=== PATIENT | male | born 1945 | race Caucasian/White ===

== ENCOUNTER → 2018-01-09 | Outpatient (CLI) | payer OTHER ==
[~2018-01-09] MED LIST: ADULT LOW DOSE81 MG PO; AMLODIPINE BESYL5 MG PO; APAP500 PO; ARICEPT 5 MG TAB5 MG PO; ATIVAN0.5 MG PO; CELEXA40 MG PO; FAMOTIDINE 20 M20 MG PO; LISINOPRIL10 MG PO; MAPAP500 M1 PO; MELOXICAM7.5 MG PO; NAMENDA 10 MG T10 MG PO; NAMENDA 5 MG TAB5 M1 PO; NORCO 5-325 TA1 EACH PO; PERIDEX15 ML SWISH&SPIT; POTASSIUM CHLO10 MEQ PO; PRENA1 CHEW TABL1 MG PO; SANCTURA XR60 M1 PO; SIMVASTATIN20 MG PO; ZANTAC 150MG T150 M1 PO
== END ==
LOC: CAT 06:20
DX: M47.897 Other spondylosis, lumbosacral region (principal); R53.1 Weakness

== ENCOUNTER 2019-07-25 11:50 | Emergency (ER) | payer OTHER ==
[~2019-07-25] VITALS: Ht 175.3 cm; Wt 72.6 kg
[2019-07-25] MEDS ORDERED: BUSPIRONE HCL15 MG PO (12:46)
[2019-07-25] MEDS ORDERED: FLOMAX0.4 MG PO (12:47)
[2019-07-25] MEDS ORDERED: AMOXICILLIN 50500 M1 PO (12:50)
[2019-07-25 12:51] LABS: ABSOLUTE NEUTROPHILS 8.8 thou/uL (1.4-8.2); BASOPHILS 0.6 % (0.0-2.0); EOSINOPHILS 0.4 % (0.0-3.0); HEMATOCRIT 30.2 % (42.0-52.0); LYMPHOCYTES 5.6 % (24.0-44.0); MCH 28.5 pg (26.0-34.0); MCHC 33.3 g/dL (28.0-37.0); MCV 85.6 fL (80.0-100.0); MONOCYTES 7.8 % (1.0-8.0); PLATELET COUNT 304 thou/uL (150-400); POLYS 85.6 % (36.0-66.0); RBC 3.52 mil/uL (4.50-6.00); RDW 14.6 % (10.5-14.5); WBC 10.2 thou/uL (4.0-11.0)
[2019-07-25 12:59] LABS: CALCIUM 9.1 mg/dL (8.5-10.1); CREATININE 9.9 mg/dL (0.7-1.3); POTASSIUM 5.6 mmol/L (3.5-5.1)
[2019-07-25 13:05] LABS: ALBUMIN 2.9 g/dL (3.4-5.0); TOTAL BILIRUBIN 0.3 mg/dL (<0.1-1.0); TOTAL PROTEIN 7.7 g/dL (6.4-8.2)
[2019-07-25 17:12] VITALS: BP 138/72
== END 2019-07-25 17:13 ==
LOC: ER 11:50
PROVIDERS: Emergency Medicine
DX: N19 Unspecified kidney failure (principal); R33.9 Retention of urine, unspecified; R19.7 Diarrhea, unspecified; Z90.79 Acquired absence of other genital organ(s); I10 Essential (primary) hypertension; K21.9 Gastro-esophageal reflux disease without esophagitis; Z86.14 Personal history of Methicillin resistant Staphylococcus aureus infection; Z96.651 Presence of right artificial knee joint; Z85.53 Personal history of malignant neoplasm of renal pelvis

== ENCOUNTER 2019-10-20 10:55 | Inpatient (IN) | payer OTHER ==
[~2019-10-20] VITALS: Ht 175.3 cm; Wt 74.4 kg
[~2019-10-20 10:55] MED LIST changes: +AMOXICILLIN 50500 M1 PO; +ARICEPT10 M1 PO; +BUSPIRONE HCL15 MG PO; +FLOMAX0.4 MG PO; +MINERIN CREME113 GM TOP; +TESSALON PERLE100 MG PO
[2019-10-20 11:43] LABS: HEMOGLOBIN 12.5 gm/dL (14.0-18.0)
[2019-10-20 11:50] LABS: CALCIUM 8.9 mg/dL (8.5-10.1); CREATININE 1.9 mg/dL (0.7-1.3); POTASSIUM 3.8 mmol/L (3.5-5.1)
[2019-10-20 11:57] LABS: ALBUMIN 3.9 g/dL (3.4-5.0); TOTAL BILIRUBIN 0.3 mg/dL (<0.1-1.0); TOTAL PROTEIN 7.9 g/dL (6.4-8.2)
[2019-10-20 12:43] VITALS: BP 137/89
--- NOTE | 2019-10-20 16:22 | H ---
[facility] [place] [address] HISTORY AND PHYSICAL Name: KRYSTAL JOHN Room #: 150-3 [facility].#: [id number] Admission: 10/20/19 Attend Phys: Jonathan Abdi MD Discharge: Date of : 45 Report #: [id number] THIS REPORT FOR: //name// CC: ACE Abdi DATE OF SERVICE: 10/20/2019 PREOPERATIVE DIAGNOSIS: Incisional hernia. HISTORY OF PRESENT ILLNESS: The patient is a 74-year-old who had a nephrectomy recently. The patient recently noticed a hernia located at the surgery site. The hernia is getting larger. He does complain of some discomfort here. The patient had a CT performed, which showed a large hernia with a couple loops of small bowel and large bowel without evidence of obstruction. The patient's family including guardian wanted to have this repaired. I agree due to the size he is at risk to have this become problematic. PAST MEDICAL HISTORY: Has a history of high blood pressure, GERD, sarcoidosis, history of cerebral palsy with left hemiparesis. PAST SURGICAL HISTORY: The patient had history hip replacement, which had an infection result of that. The patient had a right inguinal hernia repair by myself. FAMILY HISTORY: The patient has a family history of Alzheimer's dementia, hypertension. Sister with multiple sclerosis. The patient lives in a care home, has been there for a long time. His niece is a guardian. SOCIAL HISTORY: The patient does not smoke or drink. REVIEW OF SYSTEMS: There is no chest pain, shortness of breath. PHYSICAL EXAMINATION: GENERAL: The patient is a well-nourished, friendly. HEENT: Pupils react to light. Extraocular muscles are intact. NECK: Soft and supple, no masses. LUNGS: Clear. HEART: Regular rate and rhythm. No murmur or gallop. ABDOMEN: There is a scar present with a large hernia. This incision that was made for his nephrectomy. EXTREMITIES: The patient has left hemiparesis and contraction in the left upper extremity. IMPRESSION: The patient with an incisional hernia after a nephrectomy. The [facility] [address] [place] [address] HISTORY AND PHYSICAL Name: JOHNKRYSTAL L Room #: 150-[address] [place] [address].#: [id number] Admission: 10/20/19 Attend Phys: Jonathan Abdi MD Discharge: Date of : 45 Report #: [id number] patient is recommended to undergo repair of the hernia and his guardian wants to proceed. Use of a mesh was discussed. Laparoscopic approach was discussed. Risk of infection, bleeding, mesh infection, hernia recurrence was discussed. Patient and the family knows the risks and wishes to proceed. <ELECTRONICALLY SIGNED> By: Jonathan Abdi MD 10/20/19 1622 [id number] [id number] Jonathan Abdi MD /nt
[2019-10-20 17:30] VITALS: BP 141/60
[2019-10-20 18:30] VITALS: BP 140/62
--- NOTE | 2019-10-20 19:37 | NUR ---
PT transferred from [facility]. Incision sites c/d/i. Hx of cerebral palsy. Nice is also pt's guardian. IVF infusing. Internal medicine consulted. Pt is observation status. Report given to marko colbert.
[2019-10-20 20:10] VITALS: BP 160/86
[2019-10-21 03:30] VITALS: BP 123/75
--- NOTE | 2019-10-21 04:00 | NUR ---
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 PAIN HAS MORE PAIN WHEN HE HAS TO LAY FLAT OR WHILE REPOSITIONING. HE IS PLEASANT. WAS CALM THRO NOC AND AGREED FOR A R WRIST IV TO BE STARTED WITH NO ISSUES.PREVIOUS RFA INFILTRATED.USES URINAL WITH ADEQUATE OUTPUT IN THE NOC.ENCOURAGED TO DRINK.PAIN CONTROLLED BY SCHEDULED TYLENOL AND PRN NORCO.VSS. ON CLEARS.FALL PREC IN PLACE.
[2019-10-21 06:19] LABS: HEMATOCRIT 33.4 % (42.0-52.0); HEMOGLOBIN 10.9 gm/dL (14.0-18.0); MCH 28.6 pg (26.0-34.0); MCHC 32.6 g/dL (28.0-37.0); MCV 87.8 fL (80.0-100.0); RBC 3.8 mil/uL (4.50-6.00); RDW 14.6 % (10.5-14.5); WBC 7.7 thou/uL (4.0-11.0)
[2019-10-21 06:27] LABS: CALCIUM 8.1 mg/dL (8.5-10.1); CREATININE 1.8 mg/dL (0.7-1.3)
[2019-10-21 07:29] VITALS: BP 133/99
[2019-10-21 16:55] VITALS: BP 125/71
--- NOTE | 2019-10-21 17:12 | NUR ---
PT ASSESSED AT START OF SHIFT. PT W/ MILD COGNITIVE DEFICIT BUT ALERT AND COOPERATIVE W/ CARES. POST OP LAP CHOLEY W/ LAP SITES BANDAIDS D&I. TYLENOL GIVEN FOR PAIN. BS HYPOACTIVE SO PT TAKING FEW BITES OF FOOD BUT DRINKING CLEAR LIQUIDS. UP W/ THERAPY AND SAT IN THE CHAIR MOST OF SHIFT. NIECE HERE TO VISIT TWICE.
[2019-10-21 19:15] VITALS: BP 145/77
--- NOTE | 2019-10-22 02:19 | NUR ---
PT WAS OBSERVED SITTING UP ON THE SIDE OF HIS BED EATING AT START OF SHIFT.PT C/O GEN ABD PAIN,SILVIANO TYLENOL GIVEN.BANDAID IN PLACE ON HIS ABD SITES POST LAP HERNIA REPAIR.PT DRINKS WITH MED CUPS.IVF INFUSING ORDERED.URINAL AT BED SIDE.PT RESTING ON HIS BED AT THIS TIME.PT REF TO WEAR HIS YELLOW SOCK WHILE IN BE BUT AGREED TO PUT IT ON WHEN HE IS OUT OF BED.FALL PRECAUTIONS IN PLACE,CALL LIGHT WITHIN REACH.
[2019-10-22 03:30] VITALS: BP 134/85
[2019-10-22 08:05] VITALS: BP 132/76
--- NOTE | 2019-10-22 14:17 | O ---
[facility] [place] [address] OPERATIVE REPORT Name: KRYSTAL JOHN Room #: 434-P ADM IN M.R.#: [id number] Admission: 10/21/19 Attend Phys: Jonathan Abdi MD Discharge: Date of : 45 Report #: [id number] THIS REPORT FOR: cc: Dale Maloney MD, Mark A. MD Chu,Jonathan Bassett MD ~ THIS REPORT FOR: //name// CC: Dale Abdi DATE OF SERVICE: 10/21/2019 PREOPERATIVE DIAGNOSIS: Large left incisional hernia with small bowel and colon CAT scan, partially irreducible. POSTOPERATIVE DIAGNOSIS: Large incisional hernia with incarcerated and scarred omentum with adjacent transverse colon defect measured 6 x 10 cm oval shape transversely oriented. PROCEDURES PERFORMED: Repair of incarcerated incisional hernia with lysis of adhesion and placement of the Ventralight ST mesh with Echo technology. SURGEON: Jonathan Abdi MD ANESTHESIA: General anesthesia. COMPLICATIONS: None. ESTIMATED BLOOD LOSS: 5 mL. PROCEDURE NOTE: With the patient under general anesthesia, Hernandez catheter was placed, IV antibiotic was administered. Abdomen was prepped and draped in sterile fashion. Ioban was used. A 2 cm cutdown incision was made on the right side in the right upper quadrant. 0.25% Marcaine was used to anesthetize the skin and subcutaneous tissue. After incising through the skin, the anterior fascia was identified. The anterior fascia was transversely incised. The rectus muscle was spread. The posterior fascia was identified. This was then grasped with hemostats and then opened under visualization. Free peritoneal cavity was identified in this area. As I went through the fascial layers, stay sutures were placed on the fascia layers with 0 Vicryl suture. An 11 mm Origin balloon trocar was placed under visualization into the peritoneal cavity. The balloon was inflated. The sponge part of the trocar was fastened down, keeping the seal. CO2 was administered. Then under visualization, a 5 mm trocar was placed in the right lateral, slightly to the lower part of the abdomen and then [address] [address] OPERATIVE REPORT Name: KRYSTAL JOHN Room #: 434-P [facility] IN M.R.#: [id number] Admission: 10/21/19 Attend Phys: Jonathan Abdi MD Discharge: Date of : 45 Report #: [id number] a second 5 mm trocar was placed in the right upper quadrant lateral and slightly inferior to the balloon trocar and cut down site. These were felt to be the optimum position for the two 5 mm trocar. The patient was placed in a slight reverse Trendelenburg position, left side was tilted up. The hernia prior to the surgery was partially reducible, but there was still a thickened nodular area along the medial aspect of the hernia. Upon laparoscopic evaluation, there is a segment of omentum, which is incarcerated and stuck, adhesed to the hernia. There was also omentum stuck to the edge of the fascia defect. The fascia defect is oval shaped and transversely oriented. His incision was up and down. I suspect that after making the vertical incision, the fascia was opened transversely. The inferior edge of the fascia is well-defined, but the superior aspect is ill-defined. Harmonic scalpel was used to dissect the omental fat that was inside the hernia sac. Majority of this was removed. There was still some remaining fat that was thin and plastered along the sac that was too far down to reach. When I was doing this, the omentum was free from the edge of the fascia, which was well-defined inferiorly. I can see the transverse colon coming towards the fascia defect. A careful dissection was carried out mostly bluntly, freeing the omentum from the fascia edges. Once this was freed, the colon dropped down all the way. The colon was examined after the omentum was released from the sac. The colon was intact and partially filled with air. Hernia sac was measured at 10 cm transverse and then approximately 6 cm craniocaudad direction, but it did not have a definitive rim superiorly. With a 10 cm defect, a 6 x [address] and Echo technology was used. Mesh was rolled up and then placed through the cutdown site. This was placed directly under visualization after removing the 11 mm balloon trocar. The trocar was then replaced. CO2 was then placed. The mesh was oriented with a scaffolding Echo facing the anterior facing the abdominal cavity and the tubing where the Echo was brought out through the hernia defect and the balloon was inflated, tenting the mesh up. The mesh was positioned so the edge of the mesh was located about 5 cm from the fascia edges. At this point, the mesh was tacked with SorbaFix. A SorbaFix 30 was used and then a 15 SorbaFix was also used, although not all of it. The mesh covered the hernia defect well. The Echo balloon was deflated and then removed through the 11 mm trocar. Transfascial suture was then placed. CV-2 Claiborne-Sebas suture was placed at the 6 o'clock position and then at the 3-4 o'clock position and then up at 1 o'clock and then at the 11 o'clock position and then the 3-4 o'clock position. 12 o'clock being the mid part of the mesh pointing towards the head. Defect was well covered. No bleeding was identified. After the mesh was placed, the CO2 was evacuated. Trocars were removed. At the cutdown side, the fascia was closed with a umamxf-kh-ktyjt 0 PDS x 2 and the posterior layer and then xwstdd-vv-cxvyj 0 PDS in the anterior fascia. The skin was irrigated. The skin was closed with 5-0 PDS at the trocar site. At the transfascial suture site, the skin was brought together and glue was applied. Band-Aid was applied. The patient tolerated the procedure well and was taken to recovery room. We will leave the Hernandez until we hit the recovery room. The patient got to recovery [address] [address] OPERATIVE REPORT Name: KRYSTAL JOHN Room #: 434-P [facility] IN .R.#: [id number] Admission: 10/21/19 Attend Phys: Jonathan Abdi MD Discharge: Date of : 45 Report #: [id number] room, did complains quite a bit of Hernandez catheter. We decided to go ahead and remove it . <ELECTRONICALLY SIGNED> By: Jonathan Abdi MD 10/22/19 1417 1402 1455 Jonathan Abdi MD /nt
--- NOTE | 2019-10-22 15:25 | NUR ---
PT ADMITTED RELATED TO LEFT SIDED INCISIONAL HERNIA REPAIR. CM REVIEWED CHART AND SPOKE WITH CARE TEAM. CM CALLED AND SPOKE WITH PT'S NIECE/GUARDIAN. SHE INDICATED THAT PT RESIDES AT [facility] CALLED [facility] [place]. PT HAS 08/04 SUPERVISION AND ASSISTANCE IN THE COMMUNITY. 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 PT HAD USED A QUAD CANE. PT HAD HOME HEALTH IN THE PAST AND GUARDIAN INDICATED THAT THEY WOULD BE RECEPTIVE TO THEM UPON DC. CARE TEAM INDICATED THAT THEY ANTICPATE THAT PT WILL BE MEDICALLY STABLE TO DC HOME TOMORROW. CM NOTIFIED CAREGIVER FAY OF LIKELY RETURN TOMORROW. NIECE WILL PROVIDE TRANSPORT HOME. REFERRAL SENT TO [facility] FOR REVIEW. CM TO FOLLOW INDICATED WITH DC PLANNING.
--- NOTE | 2019-10-22 15:35 | NUR ---
DISCHARGE PLANNING. ANTICIPATED DISCHARGE PLANNED FOR TOMORROW. HOME HEALTH ORDERED. PATIENT REFERRAL FAXED TO [facility]. CALL PLACED TO [facility] TO NOTIFY. SPOKE WITH ZULLY STEPHENS. KAT TO REVIEW AND NOTIFY CM. FOLLOWING.
[2019-10-22 19:30] VITALS: BP 143/86
--- NOTE | 2019-10-22 20:45 | H ---
[facility] [place] [address] HISTORY AND PHYSICAL Name: KRYSTAL JOHN Room #: 434-P ADM IN M.R.#: [id number] Admission: 10/21/19 Attend Phys: Jonathan Abdi MD Discharge: Date of : 45 Report #: [id number] THIS REPORT FOR: //name// CC: Elliott Abdi MD CHIEF COMPLAINT: Abdominal pain. HISTORY OF PRESENT ILLNESS: The patient is a 74-year-old white male, well known to me over the years, who in the last year had a nephrectomy in treatment of renal cancer. He developed a postop hernia and saw Dr. Jonathan Abdi because it was causing continued episodes of pain and he underwent a surgical repair of this incisional hernia today, successfully. I am seeing the patient for medical management. PAST MEDICAL HISTORY: Includes hypertension, osteoarthritis at multiple sites, cerebral palsy with a left hemiparesis chronically. He has had a right total hip replacement in the remote past. There was an infection associated with it, but it resolved without further surgical or medical intervention after an antibiotic course. He also has a history of sarcoidosis of pulmonary variety. He responded to prolonged course of steroids in the remote past and has not had recurrence for at least 5 years. He did have a MRSA skin infection a number of years ago just prior to my taking him on as a patient and has not had any recurrences in at least the last 15 years. He has had a right inguinal hernia repair by Dr. Abdi in the past. He also has some gastroesophageal reflux disease chronically and some dementia. He has had nephrolithiasis in his remaining kidney during the postoperative period after his nephrectomy. It was removed and he has had no further recurrences. Please also note the patient has been diagnosed with Alzheimer's dementia. He also has benign prostate hypertrophy and he has some chronic anxiety. CURRENT MEDICATIONS: Aricept 10 mg by mouth daily, tamsulosin 0.4 mg by mouth nightly, acetaminophen 3 times daily, BuSpar 15 mg 3 times daily, memantine 10 mg by mouth twice daily, Tessalon Perles 3 times daily p.r.n. cough, chlorhexidine mouthwash after meals and Minerin cream for dry extremities b.i.d. ALLERGIES: He has no known drug allergies. FAMILY HISTORY: His mother of complications of Alzheimer's dementia. She also had hypertension and osteoarthritis. His sister of multiple sclerosis. SOCIAL HISTORY: The patient lives in a skilled nursing. His guardian is his niece, Tila Calloway. He has no vices and has never smoked or drank or used recreational drugs. His favorite hobby is bowling and he loves country music. [facility] [address] [place] [address] HISTORY AND PHYSICAL Name: KRYSTAL JOHN Room #: 434-P [facility] IN M.R.#: [id number] Admission: 10/21/19 Attend Phys: Jonathan Abdi MD Discharge: Date of : 45 Report #: [id number] REVIEW OF SYSTEMS: He reports no other significant problems recently, although it is well established with him in the past that he has difficulty expressing pain and it often is revealed in him having the misbehaviours such as inappropriate anger or altered mental status. PHYSICAL EXAMINATION: GENERAL: The patient is a pleasant, slightly sleepy older white male, in no apparent distress. He denies pain at the time of my exam, sort of. HEENT: Normocephalic, atraumatic. Extraocular muscles are intact. Oropharynx is moist and pink. Pupils are equally round and reactive to light. No facial weakness. His hearing is mildly diminished bilaterally. NECK: Without adenopathy or thyromegaly or mass. LUNGS: Clear bilaterally. CARDIOVASCULAR: Reveals a regular rhythm. ABDOMEN: Soft. Surgical wounds appear fine. EXTREMITIES: There are contractures in the left upper and lower extremities. He does use a special shoe with a lift due to limb length discrepancy in the left lower extremity, chronically. He does have foot drop on the left side. He has no spinal wounds. His right lower extremity is clearly much stronger than his left and he uses a quad cane for walking. NEUROLOGIC: At baseline with a slightly confused mental status as compared to normal, but is consistent with his postoperative status. Cranial nerves 2-12 are intact. Cranial cerebellar was not assessed today. He does not have a Babinski sign on the right. The patient has good technology project manager on the right side and more of a technology project manager on the left. The right lower extremity has good range of motion and the right total hip replacement scar is well healed. ASSESSMENT AND PLAN: 1. Status post incisional hernia scar after nephrectomy -- appreciate Dr. Abdi's excellent work with this gentleman and will be happy to follow with you in postoperative course. 2. Hypertension. We will monitor and treat with a goal of keeping his systolic blood pressure in the range of 140 or below. 3. Gastroesophageal reflux disease. We will monitor and add treatment if needed. 4. Osteoarthritis, multiple sites. Again, we will add treatment as needed, but try to avoid excessive use of nonsteroidal anti-inflammatories because of the next problem. 5. Chronic kidney disease, stage 3 -- the patient has a baseline creatinine that varies between 1.5 and 1.9 usually. We will continue current medication regimen and follow up with the patient daily [address] [address] HISTORY AND PHYSICAL Name: KRYSTAL JOHN Room #: 434-P ADM IN .R.#: [id number] Admission: 10/21/19 Attend Phys: Jonathan Abdi MD Discharge: Date of : 45 Report #: [id number] until discharge and see him in followup after Dr. Abdi releases him from his outpatient care. <ELECTRONICALLY SIGNED> By: Dale Maloney MD 10/22/192044 53 21 Dale Maloney MD /nt
[2019-10-23 03:00] VITALS: BP 137/72
--- NOTE | 2019-10-23 04:51 | NUR ---
PT WAS IN BED AT START OF SHIFT.PT'S NIECE AND KIDS IN ROOM VISITING.MEDS ADMINISTERED ORDERED.PT SPILLED URINE FORM HIS URINAL ON TE BED,PT WAS CLEANED UP AND BED CHANGED.PT C/O PAIN ON HIS L SIDE,MANAGED WITH MED.DR TADEO HERE TO VISIT WITH PT,NEW ORDERS NOTED AND CARRIED OUT.PT RESTING ON HIS BED AT THIS TIME.FALL PRECAUTIONS IN PLACE,CALL LIGHT WITHIN REACH.
[2019-10-23 07:06] VITALS: BP 112/76
[2019-10-23 07:17] VITALS: BP 129/65
--- NOTE | 2019-10-23 11:00 | NUR ---
PT NOTE FROM 10/22/19. PT CARE ASSUMED AT 0700. A&Ox3. PT WAS UP TO THE RECLINER WITH DIFFICULT TRANSFER X 2. IV IS PATENT WITH NO REDNESS OR EDEMA. PT REFUSED MOUTHWASH. NO POST OP BM YET. VITALS STABLE. AWAITING CONSULT FOR REHABB ON 5N. FALL PROTOCOL IN [facility]. CALL LIGHT IN PLACE.
--- NOTE | 2019-10-23 11:08 | NUR ---
PT CARE ASSUMED AT 0700. A&Ox4. PT PULLED IV OUT, CLEARED WITH DR. TADEO THAT IT IS OK TO NOT PUT A NEW ONE IN. PROTONIX IV SWITCHED TO PO. PT IS UP TO RECLINER FOR AM. PT WAS CONSULTED FOR REHAB. PT ON CASE. FALL PROTOCOL IN PLACE. CALL LIGHT IN REACH. LUNA NEEDS TO BE CALLED AND UPDATED IF CHANGES. SHE IS THE DPOA AND CAN BE REACHED ON HER CELL PHONE. PT IS UP WITH STAND BY ASSIST AND A FOUR POINT CANE.
--- NOTE | 2019-10-23 12:06 | NUR ---
PATIENT SEEN THIS DATE BY KOLTON HARDY NP WITH DR. ARMSTRONG. PATIENT HAS WILLING CAREGIVERS AND WITH THEIR ASSISTANCE WILL BE ABLE TO D/C TO HOME WITH HOME HEALTH. SOCAIL WORKER INFORMED.
[2019-10-23 14:21] VITALS: BP 129/65
[2019-10-23 15:22] VITALS: BP 118/66
--- NOTE | 2019-10-23 17:15 | NUR ---
NIECE INDICATED SHE WASN'T CONFORTABLE WITH PT GOING BACK TO HIS SKILLED NURSING WITH HH SERVICES TODAY. SHE WAS WANTING PT TO GO TO 5N. 5N ASSESSED AND INDICATED THAT THEY WON'T HAVE BEDS OVER WEEKEND. REFERRAL SENT TO [facility] FOR REVIEW. CM TO FOLLOW INDICATED WITH DC PLANNING.
[2019-10-23 21:10] VITALS: BP 141/70
--- NOTE | 2019-10-24 03:16 | NUR ---
PT WAS IN A GOOD MOOD AT THE START OF SHIFT.PT DENIED PAIN.NO BM YET.PT'S NIECE CALLED TO CHECK ON PT,SHE WAS UPDATED ON HIS CONDITION.PT'S LAP SITES COVERED WITH BANDAIDS.URINAL AT BEDSIDE.PT RESTING ON HIS BED AT THIS TIME.FALL PRECAUTIONS IN PLACE,CALL LIGHT WITHIN REACH.
[2019-10-24 05:57] VITALS: BP 140/61
[2019-10-24 07:17] VITALS: BP 127/73
--- NOTE | 2019-10-24 11:38 | NUR ---
PT CARE ASSUMED AT 0700. A&Ox4 WITH CEREBRAL PALSY. IV PROTONIX CHANGED TO PO PER MD ORDER. PT SITTING AT THE SIDE OF THE BED AND WALKED TO THE DOOR WITH PT. UPDATE GIVEN TO THE NIECE. PT RESTING. NO IV ACCESS WITH DR. TADEO SIGNING OFF ON THIS. FALL PROTOCOL IN PLACE. CALL LIGHT WITHIN REACH.
[2019-10-24 16:02] VITALS: BP 127/70
[2019-10-24 19:25] VITALS: BP 120/69
--- NOTE | 2019-10-25 03:30 | NUR ---
ASSUMED CAR OF PT AT APPROX 1900.PT'S NIECE WAS CALLED AND UPDATED ON PT'S CONDITION PER HER REQUEST.NO BM NOTED SO FAR THIS SHIFT.URINAL AT BEDSIDE.PO FLIUIDS ENCOURAGED.FALL PRECAUTIONS IN PLACE,CALL LIGHT WITHIN REACH.
[2019-10-25 04:10] VITALS: BP 133/62
[2019-10-25 06:06] LABS: HEMATOCRIT 36.5 % (42.0-52.0); HEMOGLOBIN 11.7 gm/dL (14.0-18.0); MCH 28.4 pg (26.0-34.0); MCV 88.8 fL (80.0-100.0); RBC 4.11 mil/uL (4.50-6.00); RDW 14.8 % (10.5-14.5); WBC 4.6 thou/uL (4.0-11.0)
[2019-10-25 06:28] LABS: CALCIUM 8.9 mg/dL (8.5-10.1); CREATININE 1.4 mg/dL (0.7-1.3); POTASSIUM 4.6 mmol/L (3.5-5.1)
[2019-10-25 09:02] VITALS: BP 135/79
--- NOTE | 2019-10-25 11:33 | NUR ---
ASSUMED CARE OF THE PT AT 0700. PT STERI STRIPS INTACT AND DRY. Q2 TURNS. FALL PRECAUTIONS IN PLACE, PER ROUNDING. APPLIED CREAM TO PTS ABDOMEN AND ELBOWS. NO BM SINCE SX. SPOKE WITH NIECE, WILL LET THE DOCTOR KNOW ABOUT BM. NO C/O PAIN. BED IN LOWEST POSITION AND CALL LIGHT IS IWTHIN REACH. WILL CONTINUE TO MONITOR THE PT.
[2019-10-25 18:41] VITALS: BP 162/80
[2019-10-25 19:03] VITALS: BP 130/48
--- NOTE | 2019-10-26 03:21 | NUR ---
VSS-AFEBRILE. LUNGS CLEAR-ROOM AIR. REMAINED ALERT AND ORIENTED THROUGH SHIFT. OOB TO BSC WITH GAIT BELT AND ASSIST X 2, EARLY IN SHIFT. SMALL, WATERY, BROWN STOOL. BS HYPERACTIVE, AND PASSING FLATUS. INCONTINENT X 2 OVERNIGHT DUE TO MISSING THE URINAL. MAEGAN CARE AND FULL BED CHANGE. TURNED EVERY TWO HOURS, AND APPLIED BARRIER CREAM NEEDED. FALL PRECAUTIONS IN PLACE, CALLS APPROPRIATELY FOR ANY NEEDED ASSISTANCE.
[2019-10-26 05:13] VITALS: BP 128/68
[2019-10-26 07:05] VITALS: BP 130/71
--- NOTE | 2019-10-26 11:40 | NUR ---
PT CARE ASSUMED AT 0700. A&Ox4. NO IV ACCESS, DR. TADEO HAS SIGNED OFF ON THIS. AWAITING AUTHORIZATION FROM INSURANCE FOR PLACEMENT WITH [facility]. PT REFUSED TO GET UP IN THE RECLINER. WILL CONTINUE TO TRY AND GET HIM UP. PT BOTTOM IS RED WITH NO BREAKAGE OF THE SKIN. PT HAS TAKEN ALL HIS MEDICATION WITHOUT ANY ISSUES. PT HAS HAD A BOWEL MOVEMENT AND MIRALAX WAS HELD. FALL PROTOCOL IN PLACE. CALL LIGHT IN REACH.
[2019-10-26] MEDS ORDERED: PERCOCET 10-321 EACH PO (15:11)
--- NOTE | 2019-10-26 16:05 | NUR ---
UPDATED CLINICAL PT AND OT NOTES SENT TO [facility] FOR REVIEW FOR POSSIBLE ADMISSION. CM TO FOLLOW INDICATED WITH DC PLANNING. PT'S NIECE UPDATED.
[2019-10-26 16:26] VITALS: BP 146/76
--- NOTE | 2019-10-26 16:54 | NUR ---
FAXED CLINICAL UPDATE TO [facility] RECEIVED CONFIRMATION AND SPOKE WITH BRANDYN IN ADM SHE RECEIVED UPDATE. DP TO FOLLOW.
[2019-10-26 19:59] VITALS: BP 133/57
--- NOTE | 2019-10-26 23:13 | NUR ---
PT SITTING UP IN CHAIR WITH ALARM ON. PT A0X4 BUT REMAINS FORGETFUL. PT STATED HIS NEICES IN THE HOSPITAL WITH KATINA KISER, PT DID CALL NIECE. NIECE WANTED TO KNOW IF PT WOULD BE GOING TO REHAB AT [facility] OR [facility] THIS WEEK, WILL PACE ON TO DAY SHIFT. PT DENIES PAIN. ABD BANDAIDS INTACT. PT COMPLIANT WITH MEDS. PT TWO PERSON TRANSFER WITH BELT AND CANE TO BED, ALARM ON. SCDS ON.
[2019-10-27 03:10] VITALS: BP 135/80
[2019-10-27 07:30] VITALS: BP 114/75
--- NOTE | 2019-10-27 11:00 | NUR ---
ASSUMED CARE AT 0700, SHIFT ASSESSMENT DONE, MEDS GIVEN, VSS. REPORTED PAIN, PRN PAIN MEDS GIVEN. SITTING UP IN THE CHAIR THIS AM. 9 LAP SITES WITH BADNAIDS ON THEM, CLEAN, DRY, INTACT. HAD A BM THIS AM. REMAINS ON ROOM AIR. WILL CONITNUE TO ASSESS AND ASSIST WITH ADLs NEEDED.
--- NOTE | 2019-10-27 15:27 | NUR ---
PT DISCHARGING TODAY TO [facility] FAXED DC ORDERS/SUMMARY TO FACILITY SPOKE WITH BRANDYN IN ADM SHE RECEIVED DC ORDERS AND ARRANGED TRANSPORT BY [facility] FOR 1500 TODAY. NOTIFIED PT'S SHIKHA BAKER) OF DC AND TIME OF TRANSPORT. UNIT NOTIFIED AND CHART COPY PER US. RN TO CALL REPORT TO [phone].
--- NOTE | 2019-10-29 11:21 | EKG ---
[facility] [place] [address] ELECTROCARDIOGRAM REPORT Name: RAJ JOHNKEV Flanagan Room #: 434-[facility] IN M.R.#: [id number] Admission: 10/21/19 Attend Phys: Jonathan Abdi MD Discharge: 10/27/19 Date of : 45 Report #: [id number] THIS REPORT FOR: cc: Dale Maloney MD, Mark A. MD Couchonnal, Luis F. MD ~ THIS REPORT FOR: //name// [facility] Test Date: 2019-10-20 Test Time: 11:36:56 Pat Name: KRYSTAL JOHN Department: Room: 150 3 Gender: M Showroom Manager: LEE : 1945 Requested By: Jonathan Abdi Order Number: [id number] MD: Osbaldo Wilkins Measurements Intervals Elton Rate: 76 P: 66 ND: 168 QRS: 33 QRSD: 86 T: 48 QT: 429 QTc: 483 Interpretive Statements Sinus rhythm Compared to ECG 01/01/2014 07:39:59 Right bundle-branch block no longer present Electronically Signed On 10-21-2019 8:38:42 POMOLOGY TEACHER by Osbaldo Wilkins [email or web address] <ELECTRONICALLY SIGNED> By: Osbaldo Wilkins MD 10/21/19 0838 1136 1136 Osbaldo Wilkins MD /EPI
== END 2019-10-27 17:21 | DRG 355 ==
LOC: OR 10:55 → TBA 10:55 → 4S 17:12 → OR 10-21 12:30 → 4S 10-21 12:30
PROVIDERS: Internal Medicine; ADMIT Surgery
PROC: 0WUF0JZ Supplement Abdominal Wall with Synthetic Substitute, Open Approach (ICD-10-PCS; principal; 2019-10-21)
DX: K43.0 Incisional hernia with obstruction, without gangrene (principal); M19.90 Unspecified osteoarthritis, unspecified site; R53.81 Other malaise; K21.9 Gastro-esophageal reflux disease without esophagitis; D86.9 Sarcoidosis, unspecified; Z96.649 Presence of unspecified artificial hip joint; F41.9 Anxiety disorder, unspecified; I12.9 Hypertensive chronic kidney disease with stage 1 through stage 4 chronic kidney disease, or unspecified chronic kidney disease; N18.3 Chronic kidney disease, stage 3 (moderate); I34.0 Nonrheumatic mitral (valve) insufficiency; N40.1 Benign prostatic hyperplasia with lower urinary tract symptoms; G30.0 Alzheimer's disease with early onset; F02.80 Dementia in other diseases classified elsewhere, unspecified severity, without behavioral disturbance, psychotic disturbance, mood disturbance, and anxiety; G80.8 Other cerebral palsy; Z82.49 Family history of ischemic heart disease and other diseases of the circulatory system; Z81.8 Family history of other mental and behavioral disorders; Z90.5 Acquired absence of kidney; Z87.442 Personal history of urinary calculi; Z79.899 Other long term (current) drug therapy
CPT/HCPCS: 10102; 50010; 50101; 50249; 50386; 50455; 50555; 50687; 50848; 50859; 52205; 52265; 53065; 53307; 54022; 54118; 56462; 56525; 56526; 56530; 57092; 62110; 62900; 70005